=== PATIENT | male | born 1970 | race Hispanic/Latino ===

== ENCOUNTER 2019-02-03 09:01 | Emergency (ER) | payer OTHER ==
[~2019-02-03] VITALS: Ht 165.1 cm; Wt 95.3 kg
--- NOTE | 2019-02-03 10:42 | Diagnostic Imaging Report ---
RIGHT KNEE X-RAY - 3 VIEWS HISTORY: ^PAIN X ONE WK ^[id number] ^[id number] COMPARISON: None available. FINDINGS: Bones: No acute displaced fracture. Osseous alignment is within normal limits. Joints: The joint spaces are well-maintained. Soft tissues: Small suprapatellar effusion. Linear hyperdensity overlying the distal femur may represent artifact. IMPRESSION: No acute bony abnormality. Small suprapatellar effusion. Signed by: Dr. Lucila Chacon M.D. on 02/03/2019 10:39 AM
[2019-02-03] MEDS ORDERED: ROBAXIN-750750 MG PO (10:47)
[2019-02-03] MEDS ORDERED: NAPROXEN250 MG PO (10:47)
== END 2019-02-03 11:19 | disposition home or self-care (01) ==
LOC: ER 09:01
DX: M25.561 Pain in right knee (principal); S83.411A Sprain of medial collateral ligament of right knee, initial encounter; I10 Essential (primary) hypertension
CPT/HCPCS: 99283